=== PATIENT | female | born 1975 | race Caucasian/White ===

== ENCOUNTER → 2024-08-29 | Outpatient (CLI) | payer MEDICAID, SELFPAY ==
--- NOTE | 2024-08-29 14:40 | XR_ITS ---
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
--- NOTE | 2024-08-29 14:40 | XR_ITS ---
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
== END | disposition home or self-care (01) ==
LOC: CDIM 14:33
DX: M18.11 Unilateral primary osteoarthritis of first carpometacarpal joint, right hand (principal)
CPT/HCPCS: 73110; 73130

== ENCOUNTER → 2024-08-31 | Outpatient (CLI) | payer MEDICAID, SELFPAY ==
--- NOTE | 2024-08-31 08:00 | XR_ITS ---
Examination: Screening digital mammography, bilateral Computer aided detection 3-D breast Tomosynthesis, bilateral Date and time of exam: August 31, 2024 0751 hours Indication: Screening Technique: Nonmagnified MLO, CC views of the breasts to been obtained, reconstructed from 3-D Tomosynthesis images. R2 computer aided detection program utilized for evaluation of suspicious masses and/or abnormal calcifications. 3-D Tomosynthesis images obtained. Findings: The breasts are heterogeneously dense, which may obscure small masses Grouped microcalcifications upper outer left breast 4 mm circumscribed oval mass upper outer left breast Impression: BI-RADS Category 0: Incomplete: Need additional imaging evaluation Recommend follow-up magnification spot compression films of grouped microcalcifications upper outer left breast Recommend follow-up spot tomographic views 4 mm circumscribed oval mass upper outer left breast Recommend left breast sonography follow-up to complete the workup
== END | disposition home or self-care (01) ==
LOC: CDIM 07:42
PROVIDERS: Referring Provider Registered Nurse Community Health; Visit Provider Registered Nurse Community Health
DX: Z12.31 Encounter for screening mammogram for malignant neoplasm of breast (principal); R92.0 Mammographic microcalcification found on diagnostic imaging of breast; N63.21 Unspecified lump in the left breast, upper outer quadrant
CPT/HCPCS: 77063; 77067

== ENCOUNTER → 2024-09-02 | Outpatient (CLI) | payer MEDICAID, SELFPAY ==
--- NOTE | 2024-09-02 14:45 | XR_ITS ---
Examination: Breast ultrasound complete, bilateral Date and time of exam: September 02, 2024 1438 hours INDICATIONS: Bilateral breast tenderness beginning 6 months ago, patient states left breast 4:00 lump one month, mammogram August 31, 2024 grouped microcalcifications upper outer left breast 4 mm circumscribed oval mass upper outer left breast Technique: Real-time grayscale ultrasonographic imaging bilateral breasts, including all 4 quadrants as well as nipple retroareolar and axillary regions. Findings: Sonographic images right breast No cystic or solid mass Sonographic images left breast 1:00 nodules 5 x 3 x 5 mm, 5 x 4 x 4 mm circumscribed IMPRESSION: BI-RADS Category 2: Benign findings One additional 6 month left breast sonogram follow-up is needed to document stability of 1:00 nodules described above
== END | disposition home or self-care (01) ==
PROVIDERS: PCP Registered Nurse Community Health; Referring Provider Registered Nurse Community Health; Visit Provider Registered Nurse Community Health
DX: N63.21 Unspecified lump in the left breast, upper outer quadrant (principal)
CPT/HCPCS: 76641

== ENCOUNTER → 2024-09-19 | Outpatient (CLI) | payer MEDICAID, SELFPAY ==
--- NOTE | 2024-09-19 13:57 | XR_ITS ---
Examination: Diagnostic digital mammography, unilateral, left Computer aided detection 3-D breast Tomosynthesis, unilateral Date and time of exam: September 19, 2024 1405 hours INDICATIONS: 4 mm circumscribed nodule upper outer left breast, grouped microcalcifications upper outer left breast on mammogram August 31, 2024 Technique: Nonmagnified MLO, CC views of the left breast have been obtained, reconstructed from 3-D Tomosynthesis images. R2 computer aided detection program utilized for evaluation of suspicious masses and/or abnormal calcifications. 3-D Tomosynthesis images obtained. Findings: The breast is heterogeneously dense, which may obscure small masses Suspicious microcalcifications are confirmed upper outer left breast Circumscribed 1:00 nodule 5 mm noted Impression: BI-RADS category 4: Suspicious for malignancy, suspicious microcalcifications confirmed upper outer left breast, biopsy is needed to exclude breast carcinoma, these calcifications are amenable to stereotactic breast biopsy for diagnosis Also recommend 6 month left mammogram follow-up to document stability of 1:00 nodule
== END | disposition home or self-care (01) ==
LOC: CDIM 13:55
PROVIDERS: Referring Provider Registered Nurse Community Health; Visit Provider Registered Nurse Community Health
DX: R92.342 Mammographic extreme density, left breast (principal); R92.1 Mammographic calcification found on diagnostic imaging of breast; Z80.3 Family history of malignant neoplasm of breast
CPT/HCPCS: 77061; 77065; G0279

== ENCOUNTER → 2024-10-04 | Outpatient (CLI) | payer MEDICAID, SELFPAY ==
[2024-10-04 08:29] LABS: Basophils % (Auto) 0 % (0-2.5); Eosinophils # (Auto) 0.4 Thou/mm3 (0.0-0.5); Eosinophils % (Auto) 6 % (0-10); Hematocrit 41.7 % (36.0-46.0); Hemoglobin 14.1 g/dL (12.0-16.0); Immature Granulocytes % (Auto) 0 % (0-0); Immature Granulocytes Auto 0.02 Thou/mm3 (0.00-0.00); Lymphocytes # (Auto) 1.5 Thou/mm3 (1.0-4.8); Lymphocytes % (Auto) 22 % (10-50); Mean Corpuscular HGB Conc 33.8 g/dl (31.0-37.0); Mean Corpuscular Hemoglobin 30.5 pg (25.0-35.0); Mean Corpuscular Volume 90 fL (80-100); Monocytes # (Auto) 0.6 Thou/mm3 (0.0-0.8); Monocytes % (Auto) 8 % (0-12); Neutrophils # (Auto) 4.5 Thou/mm3 (1.8-7.7); Neutrophils % (Auto) 64 % (37-80); Nucleated Red Blood Cell % 0 /100 WBC (0); Platelet Count 260 Thou/mm3 (140-440); RDW Standard Deviation 39.7 fL (36.4-46.3); Red Blood Count 4.62 Miln/mm3 (4.00-5.20)
--- NOTE | 2024-10-04 08:30 | XR_ITS ---
Examination: Stereotactic guided vacuum assisted left breast biopsy with clip placement Specimen radiograph Date and time of exam:July 04, 2025 1027 hours INDICATIONS: Mammogram 4 BI-RADS 4 suspicious microcalcifications confirmed outer left breast Timeout performed, documenting correct patient, order, referring physician, patient's site and reason for procedure, allergies to medications Informed consent provided. Time out performed Technique: The lesion left breast was localized with a stereotactic apparatus. Local anesthesia was obtained after prepping the skin at the entrance site and applying sterile drape Maximum sterile barrier technique. 5 core biopsies were then obtained, vacuum assisted, stereotactically guided, at the lesion site. Specimens appear adequate. Stereotactic breast marker was introduced at the lesion site Estimated blood loss 2 cc. Patient tolerated the procedure well and appeared in satisfactory and stable condition at completion of the procedure Pathology report to follow Impression: Successful stereotactic breast biopsy as described above. Specimen radiograph contains the biopsied suspicious microcalcifications.
[2024-10-04 08:35] LABS: Partial Thromboplastin Time 26.6 Seconds (22.0-36.0); Prothrombin Time 10.9 Seconds (9.0-12.2)
[2024-10-04 11:30] LABS: HCG,Qualitative Serum Negative
== END | disposition home or self-care (01) ==
PROVIDERS: Radiology Diagnostic Radiology; PCP Registered Nurse Community Health; Referring Provider Registered Nurse Community Health; Visit Provider Registered Nurse Community Health
DX: R92.0 Mammographic microcalcification found on diagnostic imaging of breast (principal); N62 Hypertrophy of breast; Z80.3 Family history of malignant neoplasm of breast
CPT/HCPCS: 19081; 36415; 84703; 85025; 85610; 85730; A4648; A4649

== ENCOUNTER 2025-06-27 13:45 | Emergency (ER) | payer MEDICAID, SELFPAY ==
[2025-06-27 13:55] VITALS: BP 134/86; PULSE 84; RESP 18; TEMP 37; O2SAT 96
--- NOTE | 2025-06-27 13:57 | PD.EDRME ---
Rapid Medical Screening Exam RME Arrival date/time: 06/27/25 13:45 49-year-old female with no known medical history presents to the emergency room with a chief complaint of swelling to her lip and mouth after getting lip fillers done at 10:30 AM this morning I have greeted and performed a focused initial assessment of this patient. A comprehensive ED assessment and evaluation of the patient, analysis of all test results, and completion of the medical decision making process will be conducted by additional ED providers. Chief Complaint: Allergic Reaction Vital signs: Vital Signs Temperature 98.6 F 06/27/25 13:55 Pulse Rate 84 06/27/25 13:55 Respiratory Rate 18 06/27/25 13:55 Blood Pressure 134/86 H 06/27/25 13:55 Pulse Oximetry (%) 96 06/27/25 13:55 Oxygen Delivery Method Room Air 06/27/25 13:55 Vital signs reviewed by provider: Yes
--- NOTE | 2025-06-27 14:29 | PD.EDADULT ---
ED General RME/HPI General Chief complaint: Allergic Reaction Stated complaint: ALLERGIC REACTION TO LIP FILLERS, STARTED 10:30 Time Seen by Provider: 06/27/25 14:23 Arrival date/time: 06/27/25 13:45 CC: Swollen enlarged lips HPI at approximately 1030 this morning patient had fillers injected to her lips at a private residence, approximately 1 hour later they noticed that the swelling became considerable localized to the lips. Denies any other facial swelling scalp swelling had no injections anywhere else on her body. Lips are now considerably enlarged patient is slurring her words secondary to lack of lip movement. Denies difficulty breathing shortness of breath itching. RME / HPI RME / HPI narrative: 06/27/25 13:45 49-year-old female with no known medical history presents to the emergency room with a chief complaint of swelling to her lip and mouth after getting lip fillers done at 10:30 AM this morning I have greeted and performed a focused initial assessment of this patient. A comprehensive ED assessment and evaluation of the patient, analysis of all test results, and completion of the medical decision making process will be conducted by additional ED providers. Related Data Home Medications ?Medication ?Instructions ?Recorded ?Confirmed dicyclomine 20 mg tablet 20 mg PO TID PRN Diarrhea 06/22/23 06/30/23 diphenoxylate-atropine 2.5 1 tab PO TID PRN Diarrhea 06/22/23 06/30/23 mg-0.025 mg tablet lisinopril 20 mg tablet 10 mg PO QDAY 06/22/23 06/30/23 rimegepant 75 mg disintegrating 75 mg PO Q OTHER DAY 06/22/23 06/30/23 tablet (Nurtec ODT) fluticasone furoate 200 1 inh inhalation QDAY 06/30/23 06/30/23 mcg/actuation blister powder for inhalation (Arnuity Ellipta) nortriptyline 10 mg capsule 10 mg PO DAILY 06/30/23 06/30/23 pantoprazole 40 mg tablet,delayed 40 mg PO DAILY 06/30/23 06/30/23 release tiotropium bromide 1.25 2 puff inhalation DAILY 06/30/23 06/30/23 mcg/actuation mist for inhalation (Spiriva Respimat) Previous Rx's ?Medication ?Instructions ?Recorded famotidine 20 mg tablet 20 mg PO QDAY #14 tabs 06/27/25 prednisone 20 mg tablet See Taper PO BID 3 days #6 tabs 06/27/25 Allergies Allergy/AdvReac Type Severity Reaction Status Date / Time ketorolac (From Toradol) Allergy Intermediate Hives Verified 06/27/25 13:47 penicillamine Allergy Intermediate Hives Verified 06/27/25 13:47 Review of Systems Review of Systems Narrative Review of Systems: GEN: No fever, no chills, no weight loss EYES: No discharge, no visual changes, no pain HEENT: No ear pain, no congestion, no sore throat PULM: No shortness of breath, no cough, no congestion CV: No chest pain, no dyspnea on exertion, no palpitations GI: No nausea, no vomiting, no diarrhea, no pain, no constipation : No frequency, no urgency, no dysuria MUSC/SKEL: No joint pain, no back pain SKIN: Allergic reaction to face no rash PSYCH: No hallucinations, no depression HEME/LYMPH: No easy bleeding or bruising tendencies NEURO: No weakness, no headache Past Medical History Past Medical History NEUROLOGIC: Positive Neurological Disorders and Migraine; Negative Seizures CARDIAC: Positive Cardiac Disorders and Hypertension; Negative Congestive Heart Failure RESPIRATORY: Positive Chronic Obstructive Pulmonary Disease (COPD) and Asthma; Negative Tuberculosis or Sleep Apnea GASTROINTESTINAL: Positive Gastrointestinal Disorders (DIARRHEA) and Gastroesophageal Reflux Disease; Negative Hepatitis or Colorectal Cancer GENITOURINARY: Negative Genitourinary Disorders, Renal Disease or Prostate Cancer REPRODUCTIVE: Positive Previous Pregnancies (4 VAGINAL DELIVERIES, 2 C-SECTIONS, 1 MISCARRIAGE); Negative Breast Cancer, Endometriosis, Genital Herpes, Gonorrhea, Pelvic Inflammatory Disease, Syphilis, Testicular Cancer or Uterine Prolapse MUSCULOSKELETAL: Negative Musculoskeletal Disorders, Bone Cancer or Carpal Tunnel Syndrome ENT: Negative Cataracts ENDOCRINE: Negative Endocrine Disorders, Diabetes Mellitus Type 1, Diabetes Mellitus Type 2, Hypoglycemia, Hyperthyroidism, Hypothyroidism, Parathyroid Disease, Pituitary Disease, Systemic Lupus Erythematosus, Syndrome of Inappropriate Antidiuretic Hormone (SIADH) or Graves' Disease HEMATOLOGIC: Positive Anemia (IN PAST) OTHER HISTORY: Positive Hospitalization (2 C-SECTIONS) and Chicken Pox; Negative Autoimmune Disease, Down Syndrome, Developmental Delay, Shingles, Falls, Blood Transfusions, Anesthesia Reactions, Organ Transplant, Chemotherapy, Radiation Therapy, Hyperbaric Therapy, MRSA, VRSA, Vancomycin-Resistant Enterococci, Clostridium Difficile, Cancer, Breast Cancer, Cervical Cancer, Colorectal Cancer, Lung Cancer, Ovarian Cancer, Prostate Cancer or Testicular Cancer Family History FAMILY HISTORY: Positive Family Cardiac Disorders and Family Cancer; Negative Family Psychiatric Problems, Family Respiratory Disorders, Family Gastrointestinal Problems, Family Surgery or Family Anesthesia Reaction Surgical History SURGICAL: Positive Hysterectomy (PARTIAL) and Section; Negative Cardiac Surgery, Endocrine Surgery, Thyroidectomy, Ear Surgery, Tympanostomy Tube, Eye Surgery, Nose Surgery, Oral Surgery, Tonsillectomy, Adenoidectomy, Cochlear Implant, Corneal Transplant, Throat Surgery, Abdominal Surgery, Tracheostomy, Nephrectomy, Transurethral Resection, Joint Replacement, Amputation, Open Reduction Internal Fixation, Arthroscopy, Neurologic Surgery, Brain Shunt, Mastectomy, Lumpectomy, Tubal Ligation, Vasectomy or Organ Transplant Social History SMOKING STATUS: Never smoker ED Exam Narrative Physical exam: [General: Obese in mild discomfort but not in any acute distress Head normocephalic HEENT: Face: Lips: Upper and lower lip significantly edematous, both involving the lips and the facial features above the vermilion border on the upper lip and below the vermilion border on the lower border. No cheek upper or lower eyelid involvement no hives. Mouth: Tongue is normal size uvula is midline swallow is symmetrical phonation is normal within acceptable limits Neck is supple, no edema no stridor on auscultation. Chest equal chest rise nontender to palpation Respiratory: Clear to auscultation no wheezes crackles or rubs CV: Rate rhythm is regular no murmurs rubs or clicks Skin: Edematous upper and lower lips, no hives no open indurations or ulcerations. Otherwise skin is intact no petechiae rash induration ulceration or crepitus Extremities: Moving all extremity against resistance cap refill less than 2 seconds neurosensory intact Neuro: Awake alert oriented x3 Glascow coma 15 no focal deficits] Course Course Course Narrative: Reassessment of this patient at 1645, there is been some reduction in the overall edema of both upper and lower lips. Patient notices the decrease is well. There are no hives or swelling appearing anywhere all in the face or scalp. At this time we will discharge the patient home on steroids and histamine blockers. Patient is strongly advised to not do any dissolving agents for the fillers until the swelling is completely resolved. Quality Measures none Orders Category Date Time Status Saline [Insert IV] NOW Care 06/27/25 14:28 Active Dexamethasone Inj [Decadron Inj] 10 mg Med 06/27/25 14:28 Discontinued Sodium Chloride 0.9% [Ns] 100 ml IV X1 DiphenhydrAMINE INJ [Benadryl Inj] Med 06/27/25 14:28 Discontinued 25 mg IVP X1 ONE DiphenhydrAMINE [Benadryl] Med 06/27/25 13:56 Discontinued 25 mg PO X1 ONE Famotidine Inj [Pepcid Inj] Med 06/27/25 14:28 Discontinued 20 mg IVP X1 ONE Famotidine [Pepcid] Med 06/27/25 13:56 Discontinued 20 mg PO X1 ONE dexAMETHasone TAB [Decadron Tab] Med 06/27/25 13:56 Discontinued 10 mg PO X1 ONE Vital Signs Vital signs: Vital Signs Temperature 98.6 F 06/27/25 13:55 Pulse Rate 84 06/27/25 13:55 Respiratory Rate 18 06/27/25 13:55 Blood Pressure 134/86 H 06/27/25 13:55 Pulse Oximetry (%) 96 06/27/25 13:55 Oxygen Delivery Method Room Air 06/27/25 13:55 Discharge Plan Plan Patient Disposition: HOME (Self Care) Patient condition on transfer: Stable Prescriptions/Referrals Prescriptions/Med Rec: New prednisone 20 mg tablet See Taper PO BID 3 Days Qty: 6 0RF Taper: Prednisone Taper 20 mg DAILY for 2 Days and 0 Hour 10 mg DAILY for 2 Days and 0 Hour 5 mg DAILY for 7 Days and 0 Hour famotidine 20 mg tablet 20 mg PO QDAY Qty: 14 0RF No Action lisinopril 20 mg tablet 10 mg PO QDAY diphenoxylate-atropine 2.5-0.025 mg tablet 1 tab PO TID PRN (Reason: Diarrhea) dicyclomine 20 mg tablet 20 mg PO TID PRN (Reason: Diarrhea) Nurtec ODT 75 mg tablet,disintegrating 75 mg PO Q OTHER DAY pantoprazole 40 mg tablet,delayed release (DR/EC) 40 mg PO DAILY Patient Comments: TAKE 1 TABLET BY MOUTH EVERY DAY BEFORE A MEAL nortriptyline 10 mg capsule 10 mg PO DAILY Patient Comments: TAKE 1 CAPSULE BY MOUTH EVERY DAY AT NIGHT Arnuity Ellipta 200 mcg/actuation Blister With Device 1 inh INHALATION QDAY Spiriva Respimat 1.25 mcg/actuation mist 2 puff INHALATION DAILY Patient Comments: INHALE 2 PUFFS BY MOUTH ONCE A DAY Referrals: Meena Marroquin, MODELER [Primary Care Provider] - In 1 week Problem List Clinical Impression: Allergic reaction, Swelling of both lips Patient/Caregiver Discharge Instructions Other Activity Instructions:: Continue on the medications as prescribed Avoid greasy spicy fatty or hard foods Swallow carefully if there is any symptoms such as shortness of breath difficulty breathing or wheezing return immediately to the emergency room for reevaluation. Wait until all the swelling goes down completely before considering going back for dissolve or for the fillers. If there anytime you feel this is infected such as redness pus or additional swelling return to the emergency room for reevaluation. Education Materials: ED General Allergic Reactions Print Language: Belarusian Stand Alone Forms: Vika Award Info., Patient Portal Info Letter, Work/School Release KATELYN/CONCEPCIÓN Supervising Physician KATELYN/CONCEPCIÓN Supervising Physician: Ramírez Joshi ENP [facility] Clinical Information Provided by: patient Medical Records reviewed [facility] Meds/Rx considered, not ordered None Labs/Rad/Tests considered, not ordered None Chronic Illness/Social Conditions which may negatively complicate care or outcome(s)-explain: None or not applicable EKG EKG not done Labs Labs: interpreted by sd Medication Administration(s) Medication Administration History Discontinued Medications Dexamethasone (Dexamethasone 4 Mg Tablet) 10 mg PO X1 ONE Stop: 06/27/25 13:57 Last Admin: 06/27/25 16:12 Dose: Not Given Documented By: Non-Admin Reason: Cancelled by Provider Diphenhydramine HCl (Diphenhydramine Elix 25 Mg/10 Ml Udc) 25 mg PO X1 ONE Stop: 06/27/25 13:57 Last Admin: 06/27/25 16:12 Dose: Not Given Documented By: Non-Admin Reason: Cancelled by Provider Diphenhydramine HCl (Diphenhydramine Inj 50 Mg/Ml Vial) 25 mg IVP X1 ONE Stop: 06/27/25 14:29 Last Admin: 06/27/25 15:06 Dose: 25 mg Documented By: EF Famotidine (Famotidine 20 Mg Tablet) 20 mg PO X1 ONE Stop: 06/27/25 13:57 Last Admin: 06/27/25 16:12 Dose: Not Given Documented By: Non-Admin Reason: Cancelled by Provider Famotidine (Famotidine Inj 10 Mg/Ml Vial 2 Ml) 20 mg IVP X1 ONE Stop: 06/27/25 14:29 Last Admin: 06/27/25 15:08 Dose: 20 mg Documented By: EF Dexamethasone Sodium Phosphate (10 mg/ Sodium Chloride) 101 mls @ 101 mls/hr IV X1 ONE Stop: 06/27/25 14:29 Last Infusion: 06/27/25 16:21 Dose: Infused Documented By: Admin: 06/27/25 15:06 Dose: 101 mls/hr Documented By: EF
[2025-06-27] MEDS: DEXAMETHASONE INJ 10 MG in SODIUM CHLORIDE 0.9% 100 ML 101 MG IV (15:06)
[2025-06-27] MEDS: FAMOTIDINE INJ 10 MG/ML VIAL 2 ML 20 MG IVP (15:08)
== END 2025-06-27 19:09 | disposition home or self-care (01) ==
PROVIDERS: Emergency Provider Family Medicine; PCP Nurse Practitioner Family
DX: R22.0 Localized swelling, mass and lump, head (principal); T49.8X5A Adverse effect of other topical agents, initial encounter
CPT/HCPCS: 96365; 96375; 99283; J1100; J1200; J3490; J7050

== ENCOUNTER → 2025-07-13 | Outpatient (CLI) | payer MEDICAID, SELFPAY ==
--- NOTE | 2025-07-13 10:40 | XR_ITS ---
EXAMINATION: PA lateral chest 2 views TECHNIQUE: Upright PA lateral chest 2 views Date and time: July 13, 2025, 1046 hours INDICATIONS: Coughing beginning 2 weeks ago. FINDINGS: Reduced inspiratory effort Minimal prominence left ventricle No pneumonia or pulmonary edema IMPRESSION: No pneumonia or pulmonary edema
== END | disposition home or self-care (01) ==
LOC: CDIM 10:32
PROVIDERS: PCP Registered Nurse Community Health; Referring Provider Registered Nurse Community Health; Visit Provider Registered Nurse Community Health
DX: R05.9 Cough, unspecified (principal)
CPT/HCPCS: 71046

== ENCOUNTER → 2025-08-16 | Outpatient (CLI) | payer MEDICAID, SELFPAY ==
--- NOTE | 2025-08-16 09:28 | XR_ITS ---
Examination: Shoulder, left, 3 views Technique: Shoulder AP internal rotation, AP external rotation, Y view shoulder, 3 views Exam date and time : August 16, 2025, 0936 hours INDICATIONS: Left shoulder pain beginning 3 weeks ago. FINDINGS: Moderate osteopenia Moderate narrowing glenohumeral joint No shoulder fracture or dislocation IMPRESSION: Moderate narrowing glenohumeral joint
== END | disposition home or self-care (01) ==
LOC: CDIM 09:00
PROVIDERS: PCP Registered Nurse Community Health; Referring Provider Registered Nurse Community Health; Visit Provider Registered Nurse Community Health
DX: M25.812 Other specified joint disorders, left shoulder (principal)
CPT/HCPCS: 73030